=== PATIENT | female | born 1950 | race Caucasian/White ===

== ENCOUNTER 2018-12-15 14:38 | Outpatient (CLI) | payer MEDICARE, BC ==
--- NOTE | 2018-12-15 15:47 | MMO ---
Bilateral MAMMO Bilat Screen [facility]. CLINICAL HISTORY: Patient is 68 years old and is seen for screening. The patient has no family history of breast cancer. The patient has no personal history of cancer. VIEWS: The views performed were: bilateral craniocaudal with tomosynthesis and bilateral mediolateral oblique with tomosynthesis. FILMS COMPARED: The present examination has been compared to prior imaging studies performed at [facility] on 11/22/2013, 11/26/2014, 12/02/2015 and 12/02/2016, and at [facility] on 10/24/2012. MAMMOGRAM FINDINGS: The breasts are heterogeneously dense, which could obscure a lesion on mammography. There are no suspicious masses, suspicious calcifications, or new areas of architectural distortion. IMPRESSION: THERE IS NO MAMMOGRAPHIC EVIDENCE OF MALIGNANCY. A ROUTINE FOLLOW-UP MAMMOGRAM IN 1 YEAR IS RECOMMENDED. THE RESULTS OF THIS EXAM WERE SENT TO THE PATIENT. ACR BI-RADS Category 1 - Negative MAMMOGRAPHY NOTE: 1. A negative mammogram report should not delay a biopsy if a dominant of clinically suspicious mass is present. 2. Approximately 10% to 15% of breast cancers are not detected by mammography. 3. Adenosis and dense breasts may obscure an underlying neoplasm.
--- NOTE | 2018-12-15 16:27 | BD ---
Exam: DEXA Bone Density 12/15/18 INDICATION: 68-year-old female postmenopausal osteoporosis screening. Lumbar Spine: BMD (g/cm2) T-SCORE L1 0.734 -2.3 L2 0.707 -2.9 L3 0.657 -3.9 L4 0.735 -3.0 L1-L4 0.709 -3.1 Femoral Neck: 0.679 -1.5 Total Femur: 0.835 -0.9 Impression: 1. Bone mineral density of the lumbar spine indicates osteoporosis. 2. Bone mineral density of the femoral neck indicates osteopenia. Ten year fracture risk: Major osteoporotic fracture: 8.4% Hip fracture: 1.3% POS: [facility]
== END 2018-12-15 14:39 | disposition home or self-care (01) ==
LOC: BICMAMMO 14:38
PROVIDERS: ATTEND Internal Medicine Rheumatology
DX: Z12.31 Encounter for screening mammogram for malignant neoplasm of breast (principal); M81.0 Age-related osteoporosis without current pathological fracture; M85.859 Other specified disorders of bone density and structure, unspecified thigh
CPT/HCPCS: 77063; 77067; 77080

== ENCOUNTER 2019-04-09 09:16 | Outpatient (CLI) | payer MEDICARE, BC ==
--- NOTE | 2019-04-09 15:37 | MRI ---
MRI RIGHT SHOULDER WITHOUT CONTRAST: HISTORY M25.511 shoulder pain. COMPARISON: None. FINDINGS: BICEPS TENDON: There is mild extraarticular biceps tenosynovial fluid. Mild intraarticular tendinosis. LABRUM: There is a tear of the chondrolabral junction anterior inferior and posterior inferior labrum. ROTATOR CUFF: No full-thickness tear. Mild undersurface partial tearing supraspinatus tendon as well as bursal kim face fraying. Subscapularis is intact. 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 Moderate degenerative disease acromiocl avicular joint. Normal glenoid version. MUSCLES: No significant atrophy. SOFT TISSUES: Mild edema in the posterior axillary pouch. Loss of subcoracoid fat with rotator interval synovitis. A small subacromial subdeltoid bursal effusion. IMPRESSION: 1. Chronic chondrolabral free edge fraying and partial tearing anterior inferior and posterior infer ior labrum. 2. 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 3. Extrusion of joint fluid within the biceps tendon sheath with rotator interval synovitis and cornell a of the axillary pouch can be seen with capsulitis in the correct clinical setting. POS: [facility]
== END 2019-04-09 09:17 | disposition home or self-care (01) ==
LOC: SCSMRI 09:16
PROVIDERS: ATTEND Pediatrics Sports Medicine
DX: M25.511 Pain in right shoulder (principal); S43.491A Other sprain of right shoulder joint, initial encounter

== ENCOUNTER 2020-12-29 10:05 | Outpatient (CLI) | payer MEDICARE, BC | END 2020-12-29 10:06 | disposition home or self-care (01) | LOC: BICMAMMO 10:05 | PROVIDERS: ATTEND Internal Medicine Rheumatology | DX: M81.0 Age-related osteoporosis without current pathological fracture (principal); M85.851 Other specified disorders of bone density and structure, right thigh; M85.852 Other specified disorders of bone density and structure, left thigh | CPT/HCPCS: 77080 ==